=== PATIENT | male | born 1990 | race Caucasian/White ===

== ENCOUNTER 2017-05-07 21:39 | Emergency (ER) | payer SELFPAY ==
[2017-05-07 21:40] VITALS: BMI 28.0
--- NOTE | 2017-05-07 22:18 | C.PDOC ---
History Of Present Illness Pt is a 26 yo male with known hx asthma.Pt also smokes.Now c/o pleuritic L sided CP assd/w cough productive of ylw sputum since yest Time Seen by Provider: 05/07/17 22:15 Chief Complaint (Nursing): Chest Pain History Per: Patient History/Exam Limitations: no limitations Onset/Duration Of Symptoms: Days Current Symptoms Are (Timing): Still Present Severity: Moderate Quality: Sharp Associated Symptoms: denies: Nausea, Dyspnea, Diaphoresis Past Medical History Vital Signs: Last Vital Signs Temp 97.8 F 05/07/17 22:40 Pulse 86 05/07/17 22:40 Resp 14 05/07/17 22:40 BP 118/70 05/07/17 22:40 Pulse Ox 99 05/07/17 22:40 - Medical History PMH: No Chronic Diseases, Asthma, Fractures, Migraine (Frontal Lobe Cyst) - [facility] Procedures ALCOHOL DETOXIFICATION (04/11/14) Family History: States: Unknown Family Hx - Social History Hx Tobacco Use: Yes Hx Alcohol Use: No Hx Substance Use: No - Immunization History Hx Tetanus Toxoid Vaccination: No Hx Influenza Vaccination: No Hx Pneumococcal Vaccination: No Review Of Systems Except As Marked, All Systems Reviewed And Found Negative. Constitutional: Negative for: Fever, Chills Eyes: Negative for: Pain ENT: Negative for: Ear Pain, Ear Discharge Cardiovascular: Positive for: Chest Pain Gastrointestinal: Negative for: Nausea, Vomiting Physical Exam - Physical Exam Appears: Well, Non-toxic Head: Atraumatic, Normacephalic Oral Mucosa: Moist Tongue: Normal Appearing Lips: Normal Appearing Neck: Normal, Normal ROM Chest: Symmetrical, Tenderness Cardiovascular: Rhythm Regular Respiratory: Normal Breath Sounds Gastrointestinal/Abdominal: Normal Exam Extremity: Normal ROM Neurological/Psych: Oriented x3, Normal Speech, Normal Cognition, Normal Cranial Nerves ED Course And Treatment O2 Sat by Pulse Oximetry: 98 Medical Decision Making Medical Decision Making: pt with cough,sputum production and pleuritic CP.Pos smoker.Will tx for bronchitis Disposition - Disposition Referrals: [facility] at [facility] [Outside] Disposition: HOME/ ROUTINE Disposition Time: 22:18 Condition: GOOD Prescriptions: Albuterol Sulfate [Proair Hfa] 8.5 gm IH QID PRN #1 inh PRN Reason: Shortness Of Breath Azithromycin [Zithromax] 250 mg PO DAILY #4 tablet Benzonatate [Tessalon Perles] 100 mg PO TID PRN #20 sgl PRN Reason: Cough Forms: [facility] (Trinidadian) - Clinical Impression Clinical Impression: Bronchitis
[2017-05-07 22:41] VITALS: BP 118/70; PULSE 86; RESP 14; TEMP 97.8
[2017-05-07 22:47] VITALS: O2SAT 98
--- NOTE | 2017-05-13 06:49 | CARD ---
APPROVED REPORT EKG Measurement Heart [id number] <Conclusion> Normal sinus rhythm Normal ECG
== END 2017-05-07 22:48 | disposition home or self-care (01) ==
LOC: C.ER 21:39
DX: J40 Bronchitis, not specified as acute or chronic (principal); Z72.0 Tobacco use

== ENCOUNTER 2018-10-06 00:30 | Emergency (ER) | payer SELFPAY ==
[2018-10-06 00:31] VITALS: BMI 28.0
[2018-10-06 00:45] VITALS: TEMP 98.2
[2018-10-06] MEDS ORDERED: Lidocaine 2% w Epi 1:100,000 Inj IJ ONE (00:54)
--- NOTE | 2018-10-06 01:27 | C.PDOC ---
History Of Present Illness 28 year old male presents to the ED c/o abscess in his right buttock for the past 4 days. Patient states he has had other abscess in the past in other areas of his body. Patient denies fever, chills, vomit, rash, injury, fall, trauma. Time Seen by Provider: 10/06/18 00:48 Chief Complaint (Nursing): Abnormal Skin Integrity History Per: Patient History/Exam Limitations: no limitations Onset/Duration Of Symptoms: Days (4) Current Symptoms Are (Timing): Still Present Location Of Injury: Right: Buttock Quality Of Symptoms: Painful, Swollen Recent travel outside of the [place]: No Additional History Per: Patient Past Medical History Reviewed: Historical Data, Nursing Documentation, Vital Signs Vital Signs: Last Vital Signs Temp 98.2 F 10/06/18 00:43 Pulse 94 H 10/06/18 00:43 Resp 16 10/06/18 00:43 BP 137/78 10/06/18 00:43 Pulse Ox 97 10/06/18 00:43 - Medical History PMH: Asthma, Fractures, Migraine (Frontal Lobe Cyst) Surgical History: No Surg Hx - [facility] Procedures ALCOHOL DETOXIFICATION (04/11/14) Family History: States: Unknown Family Hx - Social History Hx Tobacco Use: Yes Hx Alcohol Use: No Hx Substance Use: No - Immunization History Hx Tetanus Toxoid Vaccination: No Hx Influenza Vaccination: No Hx Pneumococcal Vaccination: No Review Of Systems Constitutional: Negative for: Fever, Chills Gastrointestinal: Negative for: Vomiting, Abdominal Pain Musculoskeletal: Negative for: Back Pain Skin: Positive for: Other (abscess) Neurological: Negative for: Weakness, Numbness Physical Exam - Physical Exam Appears: Non-toxic, No Acute Distress Skin: Normal Color, Warm, Dry, Other (mid right buttock abscess, tedner to palpation, fluctuant) Head: Atraumatic, Normacephalic Eye(s): bilateral: Normal Inspection Extremity: Normal ROM, No Tenderness, No Swelling ED Course And Treatment O2 Sat by Pulse Oximetry: 97 (ON RA) Pulse Ox Interpretation: Normal Progress Note: Plan: - Batricm 1 tab PO. - keflx 500 mg PO. - wound culture. Patient was started on antibiotics first dose given in the ED, advised to follow up in 2 days for wound check. - Incision & Drainage Of Abscess Anesthesia: Lidocaine 1% Prep Used: Sterile Water, Betadine Procedure: Incised W/Scalpel Blade#: (11), Drained Pus (purulent discharge), Irrigated Cavity W/Saline, Probed To Break Up Loculations, Packed W/Gauze, Cultures Obtained And Sent To Lab Disposition - Disposition Referrals: [facility] [Outside] Disposition: HOME/ ROUTINE Disposition Time: 01:32 Condition: IMPROVED Additional Instructions: Follow up with PMD within 1-2 days. Return to ED inj 2 days for wound check and packing removal. Return to ED immediately if feel worse. Prescriptions: Sulfamethoxazole/Trimethoprim [Bactrim DS 800 mg-160 mg] 1 tab PO BID #14 tab Cephalexin [cephalexin] 500 mg PO Q6 #28 cap Instructions: Abscess Incision and Drainage Forms: [facility] (Telugu) - Clinical Impression Clinical Impression: Abscess of buttock, right - PA / RECYCLING PROGRAM MANAGER / Resident Statement MD/DO has reviewed & agrees with the documentation as recorded. - Scribe Statement The provider has reviewed the documentation as recorded by the Scribe Alonso Bailey All medical record entries made by the Scribe were at my direction and personally dictated by me. I have reviewed the chart and agree that the record accurately reflects my personal performance of the history, physical exam, medical decision making, and the department course for this patient. I have also personally directed, reviewed, and agree with the discharge instructions and disposition.
[2018-10-06] MEDS ORDERED: Tmp-Smz 800 mg-160 mg DS Tab PO SCH (01:30)
[2018-10-06] MEDS ORDERED: Tmp-Smz 800 mg-160 mg DS Tab ONE (01:40)
[2018-10-06 01:41] VITALS: BP 120/70; PULSE 85; RESP 14
[2018-10-06 01:54] VITALS: O2SAT 97
== END 2018-10-06 01:41 | disposition home or self-care (01) ==
LOC: C.ER 00:30
DX: L02.31 Cutaneous abscess of buttock (principal)

== ENCOUNTER 2018-10-08 19:05 | Emergency (ER) | payer MEDICAID ==
[2018-10-08 19:05] VITALS: BMI 28.0
[2018-10-08 19:18] VITALS: BP 131/81; PULSE 76; RESP 16; TEMP 97.7; O2SAT 96
--- NOTE | 2018-10-08 20:08 | C.PDOC ---
History Of Present Illness Patient is a 28 year old male who presents to the ED for packing removal from an abscess he had drained on 10/06, but has since improved. He denies fever. Time Seen by Provider: 10/08/18 19:40 Chief Complaint (Nursing): Wound Check History Per: Patient History/Exam Limitations: no limitations Location Of Injury: Right: Buttock Recent travel outside of the [place]: No Additional History Per: Patient Past Medical History Reviewed: Historical Data, Nursing Documentation, Vital Signs Vital Signs: Last Vital Signs Temp 97.7 F 10/08/18 19:13 Pulse 76 10/08/18 19:13 Resp 16 10/08/18 19:13 BP 131/81 10/08/18 19:13 Pulse Ox 96 10/08/18 19:13 - Medical History PMH: Asthma, Fractures, Migraine (Frontal Lobe Cyst) Surgical History: No Surg Hx - [facility] Procedures ALCOHOL DETOXIFICATION (04/11/14) Family History: States: Unknown Family Hx - Social History Hx Tobacco Use: Yes Hx Alcohol Use: No Hx Substance Use: No - Immunization History Hx Tetanus Toxoid Vaccination: No Hx Influenza Vaccination: No Hx Pneumococcal Vaccination: No Review Of Systems Constitutional: Negative for: Fever Skin: Positive for: Other (abscess to right buttock ) Physical Exam - Physical Exam Appears: Non-toxic, No Acute Distress Skin: Normal Color, Warm, Dry, Other (abscess with packing to right buttock. no tenderness or swelling ) Head: Atraumatic, Normacephalic Eye(s): bilateral: Normal Inspection Oral Mucosa: Moist Throat: No Erythema, No Exudate Neck: Normal ROM, Supple Chest: Symmetrical, No Tenderness Cardiovascular: Rhythm Regular, No Friction Rub, No Murmur Respiratory: Normal Breath Sounds, No Rales, No Rhonchi, No Wheezing Gastrointestinal/Abdominal: Soft, No Tenderness Back: Normal Inspection, No CVA Tenderness Extremity: Normal ROM, No Swelling Neurological/Psych: Oriented x3, Normal Speech Gait: Steady ED Course And Treatment O2 Sat by Pulse Oximetry: 96 (on RA) Pulse Ox Interpretation: Normal Medical Decision Making Medical Decision Making: Plan: Cipro 500mg PO Old records reviewed, the patient was last seen in this Ed on 10/06/18 for abscess. Wound cultures checked and sensitivity states to change the antibiotic to Cipro. Packing was removed by me without difficulty. Naproxen prescribed and patient discharged. Disposition - Disposition Referrals: [facility] [Outside] Disposition: HOME/ ROUTINE Disposition Time: 20:48 Condition: GOOD Additional Instructions: Continue apply warm compresses to the area over the next 3-4 days. Return if worsened. Prescriptions: Ciprofloxacin [Cipro] 1 tab PO BID #14 tab Instructions: Boil (DC) Forms: [facility] (Occitan) - Clinical Impression Clinical Impression: Abscess of buttock, right, Abscess packing removal - PA / WATER/WASTEWATER ENGINEER / Resident Statement MD/DO has examined the patient and agrees with the treatment plan. - Scribe Statement The provider has reviewed the documentation as recorded by the Keyona Hastings All medical record entries made by the Tomasibe were at my direction and personally dictated by me. I have reviewed the chart and agree that the record accurately reflects my personal performance of the history, physical exam, medical decision making, and the department course for this patient. I have also personally directed, reviewed, and agree with the discharge instructions and disposition.
== END 2018-10-08 20:56 | disposition home or self-care (01) ==
LOC: C.ER 19:05
DX: L02.31 Cutaneous abscess of buttock (principal); Z48.00 Encounter for change or removal of nonsurgical wound dressing

== ENCOUNTER 2018-11-09 10:57 | Emergency (ER) | payer MEDICAID ==
[2018-11-09 10:57] VITALS: BMI 28.0
[2018-11-09] MEDS ORDERED: Albuterol-Ipratrop 3 mg / 0.5 (3 ml) UD ONE ×3 (11:12→13:26)
[2018-11-09] MEDS ORDERED: Sodium Chloride 0.9% 500 ML IV ONE (11:40)
[2018-11-09] MEDS: Albuterol-Ipratrop 3 mg / 0.5 (3 ml) UD IH SCH ×4 (11:50→14:00)
[2018-11-09 11:51] LABS: BASO # 0.1 K/uL (0.0-0.2); BASO % 0.6 % (0.0-2.0); EOS # 0.6 K/uL (0.0-0.7); EOS % 6.7 % (0.0-4.0); HEMOGLOBIN 13.1 g/dL (12.0-18.0); LYMPH # 1.8 K/uL (1.0-4.3); LYMPH % 19.8 % (20.0-40.0); MEAN CELL VOLUME 91.2 fL (80.0-94.0); MEAN CORPUSCULAR HEMOGLOBIN 31.4 pg (27.0-31.0); MEAN CORPUSCULAR HGB CONC 34.4 g/dL (33.0-37.0); MEAN PLATELET VOLUME 9.6 fL (7.2-11.7); MONO # 0.8 K/uL (0.0-0.8); MONO % 8.7 % (0.0-10.0); NEUT # 5.7 K/uL (1.8-7.0); NEUT % 64.2 % (50.0-75.0); RBC 4.16 Mil/uL (4.40-5.90); RED CELL DISTRIBUTION WIDTH 13.2 % (11.5-14.5); WHITE BLOOD COUNT 8.9 K/uL (4.8-10.8)
--- NOTE | 2018-11-09 11:53 | C.PDOC ---
History Of Present Illness 28 year old male patient with history of asthma presents to the ER for cough and running nose for x3 days. Associated with SOB with wheezing that is progressively worsening. Patient reports he was using an inhaler at home with minimal relief. He has no other associated symptom or complaints at this time. Time Seen by Provider: 11/09/18 11:12 Chief Complaint (Nursing): Shortness Of Breath History Per: Patient History/Exam Limitations: no limitations Onset/Duration Of Symptoms: Days (x3) Current Symptoms Are (Timing): Still Present Past Medical History Reviewed: Historical Data, Nursing Documentation, Vital Signs Vital Signs: Last Vital Signs Temp 98.1 F 11/09/18 11:04 Pulse 102 H 11/09/18 11:04 Resp 17 11/09/18 11:15 BP 127/78 11/09/18 11:04 Pulse Ox 94 L 11/09/18 11:15 - Medical History PMH: Asthma, Fractures, Migraine (Frontal Lobe Cyst) - [facility] Procedures ALCOHOL DETOXIFICATION (04/11/14) Family History: States: Unknown Family Hx - Social History Hx Tobacco Use: Yes Hx Alcohol Use: No Hx Substance Use: No - Immunization History Hx Tetanus Toxoid Vaccination: No Hx Influenza Vaccination: Yes Hx Pneumococcal Vaccination: No Review Of Systems Except As Marked, All Systems Reviewed And Found Negative. Constitutional: Negative for: Fever, Chills ENT: Positive for: Nose Discharge Cardiovascular: Negative for: Light Headedness Respiratory: Positive for: Cough, Shortness of Breath (with wheezing; progressively worse) Neurological: Negative for: Dizziness Physical Exam - Physical Exam Appears: Non-toxic, No Acute Distress Skin: Warm, Dry, No Rash Head: Normacephalic Eye(s): bilateral: Normal Inspection, PERRL, EOMI Ear(s): Bilateral: Normal Nose: Normal Oral Mucosa: Moist Throat: Normal, No Erythema, No Exudate Neck: Normal ROM, Supple Chest: Symmetrical Cardiovascular: Rhythm Regular Respiratory: No Accessory Muscle Use, No Rales, No Rhonchi, No Stridor, Wheezing (moderately wheezing bilateral throughout ), Other (able to speak in full sentences ) Gastrointestinal/Abdominal: Soft, No Tenderness Extremity: Normal ROM, No Swelling Neurological/Psych: Oriented x3, Normal Speech, Normal Motor ED Course And Treatment - Laboratory Results Result Diagrams: 11/09/18 11:47 11/09/18 11:47 O2 Sat by Pulse Oximetry: 94 (RA) Pulse Ox Interpretation: Normal - Radiology CXR: Interpreted by Me, Viewed By Me CXR Interpretation: Yes: No Acute Disease Critical Care Time - Critical Care Note Total Time (in mins): 45 Comments: see MDM Documented critical care: time excludes all time spent performing seperately billable procedures. Medical Decision Making Medical Decision Making: Previous records reviewed, the patient was last seen in the ED on 10/08/18 for packing removal and no other recent visits for asthma exacerbation. plans: -- chem labs -- blood work -- EKG -- CXR -- IV fluids -- albuterol -- solu-medrol Pre-peak flow was at 390. Patient states that his normal peak flow is normally 600. Duonebs and Solu-medrol IV ordered. On first re-exam, the patient reports that he feels the same. Pulse ox is 91-92% on RA. Patient was placed on 2L NC by nurse. Duonebs x 2 ordered. On second re-exam, the patient reports only slight improvement. Wheezing continues. Magnesium IV and Duonebs ordered. The case was discussed with the patient and he was instructed it is best to stay for observation for asthma exacerbation. Call placed several Dr. Orozco (internal medicine oncall) without success. The case was discussed with Dr. Lucille Rodriguez who agrees to admit the patient to service. Upon third re-eval the patient no longer wants to stay in the hospital and eloped from the ED. Disposition - Disposition Disposition: ELOPEMENT - ER ONLY Disposition Time: 15:30 Condition: FAIR Forms: [facility] [employer] [facility] (Singaporean) - Clinical Impression Clinical Impression: Asthma exacerbation - PA / BUSINESS OPERATIONS MANAGER / Resident Statement / has reviewed & agrees with the documentation as recorded. - Scribe Statement The provider has reviewed the documentation as recorded by the Keyona Carlos Do All medical record entries made by the Scribe were at my direction and personally dictated by me. I have reviewed the chart and agree that the record accurately reflects my personal performance of the history, physical exam, medical decision making, and the department course for this patient. I have also personally directed, reviewed, and agree with the discharge instructions and disposition.
[2018-11-09 12:05] LABS: ALB/GLOB RATIO 1.8 (1.0-2.1); ALBUMIN 4.6 g/dL (3.5-5.0); ALT/SGPT 7 U/L (21-72); AST/SGOT 35 U/L (17-59); BLOOD UREA NITROGEN 18 mg/dL (9-20); CALCIUM 9.6 mg/dl (8.6-10.4); GFR NON-AFRICAN AMERICAN > 60
[2018-11-09] MEDS ORDERED: Sodium Chloride 0.9% 1,000 ML ONE (12:10)
--- NOTE | 2018-11-09 13:52 | RAD ---
Date of service: 11/09/2018 PROCEDURE: CHEST RADIOGRAPH, 1 VIEW HISTORY: SOB, asthma, wheezing. COMPARISON: Comparison is made with 02/15/2015 FINDINGS: LUNGS: Clear. PLEURA: No pneumothorax or pleural fluid seen. CARDIOVASCULAR: No aortic atherosclerotic calcification present. Normal. OSSEOUS STRUCTURES: No significant abnormalities. VISUALIZED UPPER ABDOMEN: Normal. OTHER FINDINGS: None. IMPRESSION: No active disease.
[2018-11-09] MEDS ORDERED: Magnesium Sulfate 1 gm in D5W 1 GM/100 ML BAG IV ONE (14:02)
[2018-11-09] MEDS ORDERED: Magnesium Sulfate 1 gm in D5W 1 GM/100 ML BAG IVPB ONE (14:15)
[2018-11-09 15:18] VITALS: BP 112/58; PULSE 82; RESP 17; TEMP 98.5
[2018-11-14 08:05] VITALS: O2SAT 94
== END 2018-11-09 16:22 | disposition left against medical advice (07) ==
LOC: C.ER 10:57 → UNDOADMOB 15:09 → C.9E 15:09 → C.ER 16:22
DX: J45.901 Unspecified asthma with (acute) exacerbation (principal)
CPT/HCPCS: 71045; 80053; 85025; 87804; 94150; 94640; 96361; 96365; 96375; 99285; J2930; J3475; J7040

== ENCOUNTER 2018-12-25 21:55 | Emergency (ER) | payer MEDICAID | END 2018-12-25 23:30 | disposition home or self-care (01) | LOC: C.ER 21:55 ==